=== PATIENT | female | born 1950 | race Caucasian/White ===

== ENCOUNTER 2022-04-11 06:42 | Inpatient (IN) | payer MEDICARE, OTHER ==
[2022-03-29 16:49] LABS: BASOPHILS # (AUTO) 0.1 X10'3 (0-0.2); EOSINOPHILS # (AUTO) 0.1 X10'3 (0-0.9); EOSINOPHILS % (AUTO) 0.9 % (0-6); LYMPHOCYTES # (AUTO) 3.4 X10'3 (1.1-4.8); LYMPHOCYTES % (AUTO) 34.2 % (21-51); MEAN CORPUSCULAR HEMOGLOBIN 32.6 PG (27.0-31.0); MEAN CORPUSCULAR HGB CONC 34.3 g/dL (33.0-36.5); MEAN PLATELET VOLUME 7.9 FL (7.4-10.4); MONOCYTES # (AUTO) 0.6 X10'3 (0-0.9); MONOCYTES % (AUTO) 6.5 % (2-12); NEUTROPHILS # (AUTO) 5.7 X10'3 (1.8-7.7); NEUTROPHILS % (AUTO) 57.4 % (42-75); PRE OP HEMATOCRIT 41.5 % (35.0-45.0); PRE OP HEMOGLOBIN 14.2 g/dL (12.0-16.0); PRE OP PLATELET COUNT 277 X10'3 (140-440); RED BLOOD COUNT 4.37 X10'6 (4.20-5.60); RED CELL DISTRIBUTION WIDTH 12.6 % (11.5-14.5)
[2022-03-29 17:09] LABS: ALBUMIN 3.6 G/DL (3.4-5.0); ALBUMIN/GLOBULIN RATIO 0.9 (1.1-1.5); ALKALINE PHOSPHATASE 58 IU/L (46-116); BLOOD UREA NITROGEN 14 MG/DL (7-18); BUN/CREATININE RATIO 15.1 (6.6-38.0); CALCIUM 9.3 MG/DL (8.5-10.1); CHLORIDE 106 MMOL/L (99-107); CREATININE 0.93 MG/DL (0.40-0.90); PRE OP ALT 34 U/L (30-65); PRE OP ANION GAP 9 (8-16); PRE OP AST 18 U/L (10-37); PRE OP BILIRUB, TOTAL 0.4 MG/DL (0.0-1.0); PRE OP GLUCOSE 100 MG/DL (70-104); PRE OP POTASSIUM 3.9 MMOL/L (3.4-5.1); PRE OP SODIUM 141 MMOL/L (135-145); TOTAL CARBON DIOXIDE 26.3 MMOL/L (24-32); TOTAL PROTEIN 7.4 G/DL (6.4-8.2); eGFR 59 ML/MIN
[2022-04-11] VITALS (14 sets, daily range): BP systolic 120–151; BP diastolic 53–78
[~2022-04-11] VITALS: Ht 167.6 cm; Wt 130.6 kg
[~2022-04-11 06:42] MED LIST: ATOR10TA87 PO; LEVO5TAB29 PO; LISI40TA13 PO; MULT-1133; ceFAZolin inj. 3,000 MG in normal saline 100ml IV soln 100 ML IV ONE; famotidine 20mg tablet PO ONE; ringers solution, lacted 1,000 ML IV SCH
[2022-04-11] MEDS ORDERED: fentaNYL/PF 50MCG/1 ML 2ML syringe ONE ×2 (09:02→10:28)
[2022-04-11] MEDS ORDERED: midazolam 1 mg/ML 2ml injection ONE (09:02)
[2022-04-11] MEDS ORDERED: rocuronium 10mg/ml inj IV ONE (09:06)
[2022-04-11] MEDS ORDERED: ROPIVAcaine 0.5% (5mg/ml) 30ml vial ONE (09:23)
[2022-04-11] MEDS ORDERED: cloNIDine hcl/PF 100mcg/ml inj ONE (09:24)
[2022-04-11] MEDS ORDERED: sevoflurane 250ml liquid IH ONE (09:29)
[2022-04-11] MEDS ORDERED: LIDOcaine 1% (10mg/ml)w/preservative inj. 20ml MDV ONE (09:29)
[2022-04-11] MEDS ORDERED: dexamethasone sod phosphate 10mg/ml inj ONE (09:29)
[2022-04-11] MEDS ORDERED: HYDROmorphone/PF 0.2 MG/ML SYRINGE IV PRN ×2 (10:05)
[2022-04-11] MEDS ORDERED: ringers solution, lacted 1,000 ML IV SCH (10:05)
[2022-04-11] MEDS ORDERED: ROPIVAcaine 0.2%/PF PUMP/bolus 545 ML INTERSCALE SCH (10:05)
[2022-04-11] MEDS ORDERED: ondansetron/PF 4mg/2ml inj IV PRN (10:05)
[2022-04-11] MEDS ORDERED: ROPIVAcaine 0.2% (10 MG/5 ML) BOLUS INJECTION INTERSCALE PRN (10:05)
[2022-04-11] MEDS ORDERED: morphine 2 MG/ML inj. syringe IV PRN (10:05)
[2022-04-11] MEDS ORDERED: BUPIVAcaine/PF 2.5 mg/ml (0.25%) 30ml vial ONE (10:33)
[2022-04-11] MEDS ORDERED: sugammadex 200mg/2ml injection IV ONE (10:47)
[2022-04-11] MEDS ORDERED: HYDROcodone/acetaminophen 10/325mg tab PO PRN (10:50)
[2022-04-11] MEDS ORDERED: neostigmine methylsulfate 1 MG/ML 10ml vial ONE (12:01)
[2022-04-11] MEDS ORDERED: glycopyrrolate 0.2mg/ml inj ONE (12:01)
[2022-04-11] MEDS ORDERED: ondansetron/PF 4mg/2ml inj ONE (12:01)
[2022-04-11] MEDS ORDERED: propofol inj 20 ML IV ONE (12:01)
[2022-04-11] MEDS ORDERED: acetaminophen 1,000mg/100ml IV 100 ML IV ONE (12:01)
--- NOTE | 2022-04-11 13:24 | NUR ---
PATIENT A&OX4, DENIES PAIN, V/S WNL, SCD OFF, LEFT SHOULDER DRESSING CDI W/ SLING. ICE IN PLACE. I HAVE REVIEWED D/C INSTRUCTIONS WITH PATIENT and they have verbalized understanding patient d/c home with all belongings and family gave transport home. Addendum: 04/11/22 at 1333 by Roly Blanco RN Amended: Links added.
== END 2022-04-11 13:24 | disposition home or self-care (01) | DRG 501 ==
LOC: PAS IN 06:42
PROVIDERS: ADMIT Orthopaedic Surgery; ATTEND Orthopaedic Surgery
PROC: 0RBK4ZZ Excision of Left Shoulder Joint, Percutaneous Endoscopic Approach (ICD-10-PCS; 2022-04-11)
PROC: 3E0T3BZ Introduction of Anesthetic Agent into Peripheral Nerves and Plexi, Percutaneous Approach (ICD-10-PCS; 2022-04-11)
PROC: 0LN24ZZ Release Left Shoulder Tendon, Percutaneous Endoscopic Approach (ICD-10-PCS; principal; 2022-04-11 09:29)
DX: M65.812 Other synovitis and tenosynovitis, left shoulder (principal); Z68.42 Body mass index [BMI] 45.0-49.9, adult; M19.012 Primary osteoarthritis, left shoulder; G89.29 Other chronic pain; E66.01 Morbid (severe) obesity due to excess calories
CPT/HCPCS: 36415; 80053; 82948; 85025; A4565; A4618; A6449; A7000; J0131; J0690; J0735; J1100; J2250; J2405; J2704; J2710; J2795; J3010; J3490; J7120; U0003; U0005